=== PATIENT | male | born 1960 | race Two or more races ===

== ENCOUNTER 2021-06-29 18:34 | Emergency (ER) | payer OTHER ==
[~2021-06-29] VITALS: Ht 190.5 cm; Wt 108.9 kg
[2021-06-29 19:46] VITALS: BP 122/83
[2021-06-29] MEDS ORDERED: ACETAMINOPHEN 500 MG TAB PO ONE (20:15)
[2021-06-29] MEDS ORDERED: IBUPROFEN 800 MG TAB PO ONE (20:15)
[2021-06-29] MEDS ORDERED: TETANUS-DIPTH-ACEL PERTUSSIS 0.5ML SYR Tdap IM ONE (21:00)
[2021-06-29] MEDS ORDERED: LIDOCAINE 1% HCL (LOCAL ANESTH.) INJ 20ML MDV IJ ONE (21:00)
[2021-06-29] MEDS ORDERED: BACITRACIN TOP OINT 1 UD PKG TOP ONE (22:00)
== END 2021-06-29 22:31 | disposition home or self-care (01) ==
LOC: ER 18:34
DX: S81.812A Laceration without foreign body, left lower leg, initial encounter (principal); E66.9 Obesity, unspecified; Z68.30 Body mass index [BMI] 30.0-30.9, adult; I10 Essential (primary) hypertension; W20.8XXA Other cause of strike by thrown, projected or falling object, initial encounter; Y93.89 Activity, other specified; Y92.89 Other specified places as the place of occurrence of the external cause; Y99.8 Other external cause status
CPT/HCPCS: 12004; 73562; 90471; 90715; 99283; J2001